=== PATIENT | male | born 1995 | race African-American/Black ===

== ENCOUNTER 2021-12-25 01:30 | Emergency (ER) | payer OTHER ==
[2021-12-25] MEDS ORDERED: Ketorolac Tromethamine 30 MG/ML VIAL ONE (01:57)
[2021-12-25] MEDS ORDERED: HYDROcodone/Acetaminophen 10/325 mg Tablet ONE (03:21)
[2021-12-25] MEDS ORDERED: Iopamidol 300 61% 100 ML VIAL FS ONE (12:44)
== END 2021-12-25 05:00 ==
LOC: EEVIPCON 01:30 → CSHERS 01:30 → EDBD 01:30 → CSHERS 05:00
DX: S06.0X9A Concussion with loss of consciousness of unspecified duration, initial encounter (principal); S20.212A Contusion of left front wall of thorax, initial encounter; M23.92 Unspecified internal derangement of left knee; F17.210 Nicotine dependence, cigarettes, uncomplicated; Y04.8XXA Assault by other bodily force, initial encounter
CPT/HCPCS: 70450; 71045; 71260; 74177; 96361; 96374; J1885; Q9967